=== PATIENT | female | born 1990 | race Caucasian/White ===

== ENCOUNTER → 2016-07-30 | Outpatient (CLI) | payer MEDICAID ==
[~2016-07-30] MED LIST: ABILIFY20 MG PO; ATIVAN 1MG T1 MG/TAB PO; BACTRIM DS 8001 TAB PO; BCP TD; CEFTIN500 MG PO; DEPO-PROVER150 MG/M1 IM; DEPO-PROVER400 MG/ML IM; DOXYCYCLINE 10100 MG PO; DOXYCYCLINE100 M3 PO; EPA/GLA1 SGL; FLEXERIL 1010 MG/TAB PO; FLEXERIL10 MG PO; IBIFON 600600 MG PO; METRONIDAZOLE500 MG PO; MONISTAT MR; MOTRIN 600600 MG/TAB PO; MOTRIN 800800 MG/TAB PO; NO HOME MEDICATIONS; NORCO 325 MG-51 TAB; NORCO 325 MG-51 TAB PO; ORTHO TRI-CYCLE1 TAB PO; PERCOCET 325 MG1 TA2 PO; PHENERGAN 25 TA25 MG PO; PRENATAL1 TA1 PO; PROZAC 20MG20 MG PO; VALIUM 5MG T5 MG/TAB PO; XANAX 0.5MG0.5 MG PO; ZOFRAN ODT4 MG PO
== END ==
LOC: BHSO 09:34
DX: F60.3 Borderline personality disorder (principal)

== ENCOUNTER → 2016-08-30 | Outpatient (CLI) | payer MEDICAID | LOC: BHSO 12:52 | DX: F60.3 Borderline personality disorder (principal) ==

== ENCOUNTER 2016-12-04 09:56 | Emergency (ER) | payer MEDICAID ==
[~2016-12-04] VITALS: Ht 165.1 cm; Wt 44.5 kg
[~2016-12-04 09:56] MED LIST changes: -ATIVAN 1MG T1 MG/TAB PO
[2016-12-04] MEDS ORDERED: ATIVAN 1MG T1 MG/TAB PO (10:44)
[2016-12-04 11:08] VITALS: BP 116/78; PULSE 82; TEMP 98.5
== END 2016-12-04 11:11 | disposition home or self-care (01) ==
LOC: COL.ER 09:56
DX: F41.9 Anxiety disorder, unspecified (principal); F31.9 Bipolar disorder, unspecified; F17.210 Nicotine dependence, cigarettes, uncomplicated; Z90.710 Acquired absence of both cervix and uterus; Z98.890 Other specified postprocedural states

== ENCOUNTER → 2016-12-05 | Outpatient (CLI) | payer MEDICAID ==
[~2016-12-05] MED LIST changes: +ATIVAN 1MG T1 MG/TAB PO
== END ==
LOC: BHSO 08:29
DX: F41.1 Generalized anxiety disorder (principal)

== ENCOUNTER → 2016-12-19 | Outpatient (CLI) | payer MEDICAID | LOC: BHSO 09:07 | DX: F41.1 Generalized anxiety disorder (principal) ==